=== PATIENT | female | born 1960 ===

== ENCOUNTER 2017-06-03 22:12 | Observation (INO) | payer SELFPAY ==
[2017-06-03 23:10] LABS: BASO # 0.1 K/uL (0.0-0.2); BASO % 0.7 % (0.0-2.0); EOS # 0.3 K/uL (0.0-0.7); EOS % 3.3 % (0.0-4.0); HEMATOCRIT 38.1 % (34.0-47.0); LYMPH # 3.4 K/uL (1.0-4.3); LYMPH % 39.2 % (20.0-40.0); MEAN CELL VOLUME 82.3 fl (81.0-99.0); MEAN CORPUSCULAR HEMOGLOBIN 27.9 pg (27.0-31.0); MEAN CORPUSCULAR HGB CONC 33.9 g/dL (33.0-37.0); MEAN PLATELET VOLUME 7.7 fl (7.2-11.7); MONO # 0.6 K/uL (0.0-0.8); MONO % 7.1 % (0.0-10.0); NEUT # 4.4 K/uL (1.8-7.0); NEUT % 49.7 % (50.0-75.0); NRBC % 0.2 % (0.0-0.0); RED CELL DISTRIBUTION WIDTH 15.4 % (11.5-14.5); WHITE BLOOD COUNT 8.8 K/uL (4.8-10.8)
--- NOTE | 2017-06-03 23:52 | ED PDOC ---
HPI: Chest Pain Time Seen by Provider: 06/03/17 22:23 Chief Complaint (Nursing): Chest Pain Chief Complaint (Provider): chest pain History Per: Patient History/Exam Limitations: no limitations Onset/Duration Of Symptoms: Hrs (since 5pm) Current Symptoms Are (Timing): Still Present Quality: Pressure, "Pain" Associated Symptoms: Dyspnea. denies: Nausea, Diaphoresis, Syncope Additional Complaint(s): Chest pain started while shopping, radiates up from LEFT arm into chest, increased with deep breathing. No relief with rest. Pt with htn and compliant with medications. Also c/o LEFT ear pain for 3 days PMD [facility] Past Medical History Reviewed: Historical Data, Nursing Documentation, Vital Signs Vital Signs: Last Vital Signs Temp 97.5 F L 06/04/17 12:00 Pulse 82 06/04/17 12:00 Resp 18 06/04/17 12:00 BP 105/64 06/04/17 12:00 Pulse Ox 96 06/04/17 12:00 - Medical History PMH: Bronchitis, HTN - Surgical History Surgical History: Tonsillectomy - Family History Family History: States: Hypertension - Social History Current smoker - smoking cessation education provided: No Alcohol: None - Immunization History Hx Tetanus Toxoid Vaccination: No Hx Influenza Vaccination: No Hx Pneumococcal Vaccination: No - Home Medications Home Medications: Ambulatory Orders Medication Instructions Recorded Amlodipine Besylate [Norvasc] 5 mg PO DAILY 01/25/16 Pantoprazole [Protonix EC Tab] 20 mg PO DAILY #1 ect 06/04/17 - Allergies Allergies/Adverse Reactions: Allergies Allergy/AdvReac Type Severity Reaction Status Date / Time No Known Allergies Allergy Verified 01/30/16 04:09 Review of Systems ROS Statement: Except As Marked, All Systems Reviewed And Found Negative (and as per HPI) Constitutional: Negative for: Fever, Chills, Weakness, Malaise ENT: Positive for: Ear Pain Cardiovascular: Positive for: Chest Pain, Light Headedness. Negative for: Edema Musculoskeletal: Positive for: Leg Pain (LEFT leg varicose veins) Neurological: Negative for: Weakness, Numbness Physical Exam - Reviewed Nursing Documentation Reviewed: Yes Vital Signs Reviewed: Yes - Physical Exam Appears: Positive for: Well, No Acute Distress Head Exam: Positive for: ATRAUMATIC, NORMOCEPHALIC Skin: Positive for: Warm, Dry Eye Exam: Positive for: EOMI, PERRL ENT: Negative for: Pharyngeal Erythema, Tonsillar Exudate Neck: Positive for: Painless ROM, Supple Cardiovascular/Chest: Positive for: Regular Rate, Rhythm, Chest Non Tender. Negative for: Murmur Respiratory: Positive for: Normal Breath Sounds. Negative for: Wheezing Gastrointestinal/Abdominal: Positive for: Soft. Negative for: Tenderness Back: Positive for: Normal Inspection. Negative for: Vertebral Tenderness Extremity: Positive for: Normal ROM. Negative for: Deformity Lymphatic: Negative for: Adenopathy Neurologic/Psych: Positive for: Alert. Negative for: Motor/Sensory Deficits - Laboratory Results Result Diagrams: 06/03/17 23:03 06/04/17 00:21 - ECG ECG: Positive for: Interpreted By Me ECG Rhythm: Positive for: Normal QRS, Normal ST Segment, Sinus Rhythm O2 Sat by Pulse Oximetry: 98 Pulse Ox Interpretation: Normal Disposition - Clinical Impression Clinical Impression: Chest pain - Disposition Disposition: Transfer of Care Disposition Time: 00:00 Condition: FAIR Patient Signed Over To: Amaury Verma Handoff Comments: Pending ER workup and final ER disposition
[2017-06-04] MEDS ORDERED: Nitroglycerin 2% Ointment Foilpak UD TOP STA (00:24)
--- NOTE | 2017-06-04 00:26 | ED PDOC ---
- Laboratory Results Result Diagrams: 06/03/17 23:03 06/04/17 00:21 - ECG O2 Sat by Pulse Oximetry: 98 (RA) Pulse Ox Interpretation: Normal Medical Decision Making Medical Decision Making: Time: 00:23 --Patient is signed out to me by Dr. Nga Morris pending labs and reevaluation. Time: 1:01 --Labs and chest x-ray show no clinically significant abnormalities. --Case was discussed with Dr. Hickman, who agreed with decision to place patient under observation status for chest Scribe Attestation: Documented by Gray Obrien, acting as a scribe for Amaury Verma MD Provider Scribe Attestation: All medical record entries made by the Scribe were at my direction and personally dictated by me. I have reviewed the chart and agree that the record accurately reflects my personal performance of the history, physical exam, medical decision making, and the department course for this patient. I have also personally directed, reviewed, and agree with the discharge instructions and disposition. Disposition Discussed With : Linus Hickman Counseled Patient/Family Regarding: Studies Performed, Diagnosis, Need For Followup - Clinical Impression Clinical Impression: Chest pain - POA Present On Arrival: None - Disposition Disposition: Hospitalized as Observation Patient Disposition Time: 01:01 Condition: FAIR
[2017-06-04 00:30] LABS: ALB/GLOB RATIO 1.1 (1.0-2.1); ALKALINE PHOSPHATASE 129 U/L (38-126); ALT/SGPT 28 U/L (9-52); AST/SGOT 30 U/L (14-36); BILIRUBIN,TOTAL 0.2 mg/dl (0.2-1.3); BLOOD UREA NITROGEN 15 mg/dl (7-17); CALCIUM 9.1 mg/dL (8.4-10.2); CARBON DIOXIDE 24 mmol/L (22-30); CHLORIDE 105 mmol/L (98-107); GFR AFRICAN-AMERICAN > 60; GLUCOSE,RANDOM 98 mg/dL (65-105); MAGNESIUM 2.1 MG/DL (1.6-2.3); PHOSPHOROUS 3.7 mg/dl (2.5-4.5); POTASSIUM 3.9 MMOL/L (3.6-5.0); SODIUM 140 mmol/l (132-148); TOTAL PROTEIN 8.1 G/DL (6.3-8.2)
[2017-06-04] MEDS ORDERED: Nitroglycerin 2% Ointment Foilpak UD TOP ONE (00:34)
--- NOTE | 2017-06-04 01:52 | CP.PCM.HP ---
History of Present Illness - History of Present Illness History of Present Illness: 56 y/o female with a PMHx of essential HTN and GERD presented to [facility] ED tonight with a complaint of left arm pain radiating to her LUSB. Pt reports she was shopping this morning when the pain started. Pain started at her LUE at her finger tips and moved up the around the LUSB of her chest. Pain is pressure like in quality, 7/10, constant, exacerbated with deep inspiration, and alleviated with Tylenol. Pt also reports left ear pain in association with pain. Denies any exertional chest pain or history of exertional chest pain. No other complaints. Denies left neck/jaw pain, nausea/vomiting, diaphoresis, palpitations, numbness/tingling. ROS: remaining 12 systems reviewed, foudn to be negative PMD: CFH PMHx: HTN, prediabetes, gastritis Meds: Losartan 100mg QD, Amlodipine 5mg QD, pantoprazole 20mg QD ALL: NKDA PsurgHx: denies PhospHx: denies SocialHx: denies ETOH/Tobacco/drug abuse FamilyHx: denies [place], CAD, Stroke, cancer ED COURSE: Vitals on presentation: 97.9, HR 77, RR 18, BP 143/77, POX 98% RA PE: wnl Labs: CBC: wnl CMP: wnl BNP: wnl Trop I: wnl Coags: wnl Imaging: EKG: NSR, 78bpm, normal axis, no acute ST elevations/depressions (as by me) Admitted to telemetry for further monitoring Present on Admission - Present on Admission Any Indicators Present on Admission: No Past Patient History - Infectious Disease Hx of Infectious Diseases: None - Past Social History Smoking Status: Never Smoked - CARDIAC Hx Hypertension: Yes - PULMONARY Hx Bronchitis: Yes - PSYCHIATRIC Hx Substance Use: No - SURGICAL HISTORY Hx Tonsillectomy: Yes - ANESTHESIA Hx Anesthesia: No Meds Allergies/Adverse Reactions: Allergies Allergy/AdvReac Type Severity Reaction Status Date / Time No Known Allergies Allergy Verified 01/30/16 04:09 Physical Exam - Constitutional Appears: Non-toxic, No Acute Distress - Head Exam Head Exam: ATRAUMATIC - Eye Exam Eye Exam: EOMI. absent: Conjunctival injection, Scleral icterus Pupil Exam: PERRL - ENT Exam ENT Exam: Mucous Membranes Moist - Neck Exam Neck exam: Positive for: Full Rom. Negative for: Tenderness - Respiratory Exam Respiratory Exam: Chest Wall Tenderness (reproducible chest pain on palpation at LUSB), Clear to Auscultation Bilateral, NORMAL BREATHING PATTERN. absent: Rales, Rhonchi, Wheezes - Cardiovascular Exam Cardiovascular Exam: REGULAR RHYTHM, RRR, +S1, +S2. absent: Tachycardia, Gallop , JVD, Rubs, Systolic Murmur - GI/Abdominal Exam GI & Abdominal Exam: Normal Bowel Sounds, Soft. absent: Distended, Firm, Pulsatile Mass, Rebound, Rigid, Tenderness - Extremities Exam Extremities exam: Positive for: normal inspection, pedal pulses present. Negative for: calf tenderness, pedal edema, tenderness - Neurological Exam Neurological exam: Alert, CN II-XII Intact, Oriented x3 - Skin Skin Exam: Dry, Intact, Normal Color, Warm Results - Vital Signs Recent Vital Signs: Last Vital Signs Temp 98.2 F 06/04/17 01:33 Pulse 72 06/04/17 01:33 Resp 16 06/04/17 01:33 BP 110/67 06/04/17 01:33 Pulse Ox 97 06/04/17 01:33 - Labs Result Diagrams: 06/03/17 23:03 06/04/17 00:21 Labs: Laboratory Results - last 24 hr 06/03/17 06/03/17 06/03/17 22:54 23:03 23:03 WBC 8.8 RBC 4.63 Hgb 12.9 Hct 38.1 MCV 82.3 D MCH 27.9 MCHC 33.9 RDW 15.4 H Plt Count 220 MPV 7.7 Neut % (Auto) 49.7 L Lymph % (Auto) 39.2 [place] % (Auto) 7.1 Eos % (Auto) 3.3 Baso % (Auto) 0.7 Neut # 4.4 Lymph # 3.4 [place] # 0.6 Eos # 0.3 Baso # 0.1 PT 10.4 INR 0.9 APTT 31.0 D-Dimer, Quantitative 213 Sodium Potassium Chloride Carbon Dioxide Anion Gap BUN Creatinine Est GFR ( Amer) Est GFR (Non-Af Amer) Random Glucose Calcium Phosphorus Magnesium Total Bilirubin AST ALT Alkaline Phosphatase Troponin I NT-Pro-B Natriuret Pep Total Protein Albumin Globulin Albumin/Globulin Ratio Blood Type O POSITIVE Antibody Screen Negative BBK History Checked No verified bt 06/04/17 00:21 WBC RBC Hgb Hct MCV MCH MCHC RDW Plt Count MPV Neut % (Auto) Lymph % (Auto) [place] % (Auto) Eos % (Auto) Baso % (Auto) Neut # Lymph # [place] # Eos # Baso # PT INR APTT D-Dimer, Quantitative Sodium 140 Potassium 3.9 Chloride 105 Carbon Dioxide 24 Anion Gap 16 BUN 15 Creatinine 0.7 Est GFR ( Amer) > 60 Est GFR (Non-Af Amer) > 60 Random Glucose 98 Calcium 9.1 Phosphorus 3.7 Magnesium 2.1 Total Bilirubin 0.2 AST 30 ALT 28 Alkaline Phosphatase 129 H Troponin I < 0.0120 NT-Pro-B Natriuret Pep 28.6 Total Protein 8.1 Albumin 4.3 Globulin 3.8 Albumin/Globulin Ratio 1.1 Blood Type Antibody Screen BBK History Checked Assessment & Plan (1) Chest pain, rule out acute myocardial infarction Assessment and Plan: first troponin negative EKG in ED unremarkable for ACS Trend Troponins Q8H admit and monitor on tele pain control repeat EKG in AM Status: Acute (2) Essential hypertension Assessment and Plan: controlled c/w home meds Status: Chronic (3) Prediabetes Assessment and Plan: recently diagnosed HbA1c 5.7 dietary control Status: Chronic (4) Prophylactic measure Assessment and Plan: OOB/ambulation SCDs PRN Status: Acute
[2017-06-04 03:19] VITALS: RESP 18
[2017-06-04 08:41] VITALS: TEMP 97.5
[2017-06-04] MEDS ORDERED: Pneumococcal 23-Valent Vaccine IM ONE (09:00)
[2017-06-04] MEDS ORDERED: Pantoprazole 20 mg EC Tab PO SCH (09:00)
[2017-06-04] MEDS ORDERED: Influenza Vaccine 18yr & older 0.5 ML/45 MCG SYR IM ONE (09:00)
--- NOTE | 2017-06-04 09:42 | RAD ---
HISTORY: chest pain COMPARISON: No prior. TECHNIQUE: Chest PA and lateral FINDINGS: LUNGS: No active pulmonary disease. PLEURA: No significant pleural effusion identified. No pneumothorax apparent. CARDIOVASCULAR: Normal. OSSEOUS STRUCTURES: Mild degenerative changes are seen in the spine. VISUALIZED UPPER ABDOMEN: Normal. OTHER FINDINGS: None. IMPRESSION: No active disease.
--- NOTE | 2017-06-04 09:51 | CP.PCM.PN ---
Subjective - Date & Time of Evaluation Date of Evaluation: 06/04/17 Time of Evaluation: 08:00 - Subjective Subjective: 56 y/o female with a PMHx of essential HTN and GERD presented to the ED with symptoms of CP. She currently denies significant chest pain or SOB; She shares of slight headache Pt clarified family history: Mother with pancreatitis at 72 and paternal grandfather with CT; Objective - Vital Signs/Intake and Output Vital Signs (last 24 hours): Temp Pulse Resp BP Pulse Ox 97.5 F L 71 18 107/69 97 06/04/17 08:00 06/04/17 09:36 06/04/17 08:00 06/04/17 09:36 06/04/17 08:00 - Medications Medications: Current Medications Amlodipine Besylate (Norvasc) 5 mg PO DAILY [facility] Last Admin: 06/04/17 09:36 Dose: 5 mg Ketorolac Tromethamine (Toradol) 30 mg IVP Q6 PRN PRN Reason: Pain, moderate (4-7) Losartan Potassium (Cozaar) 100 mg PO DAILY [facility] Last Admin: 06/04/17 09:35 Dose: 100 mg Ondansetron HCl (Zofran Inj) 4 mg IVP Q6 PRN PRN Reason: Nausea/Vomiting Pantoprazole Sodium (Protonix Ec Tab) 20 mg PO DAILY [facility] Last Admin: 06/04/17 09:36 Dose: 20 mg - Labs Labs: 06/03/17 23:03 06/04/17 00:21 PT 10.4 Seconds (9.8-13.1) 06/03/17 23:03 INR 0.9 (0.9-1.2) 06/03/17 23:03 APTT 31.0 Seconds (25.6-37.1) 06/03/17 23:03 Assessment and Plan - Assessment and Plan (Free Text) Plan: 1) Chest Pain first troponin negative EKG in ED unremarkable for ACS Trend Troponins Q8H admit and monitor on tele pain control repeat EKG in AM Status: Acute (2) Essential hypertension Assessment and Plan: controlled c/w home meds Status: Chronic (3) Prediabetes Assessment and Plan: recently diagnosed HbA1c 5.7 dietary control Status: Chronic (4) Prophylactic measure Assessment and Plan: OOB/ambulation SCDs PRN Status: Acute
[2017-06-04 12:23] VITALS: BP 105/64; PULSE 82
--- NOTE | 2017-06-04 13:48 | CP.PCM.DIS ---
Provider - Provider Date of Admission: 06/04/17 01:01 Attending physician: Rhea Bray MD Time Spent in preparation of Discharge (in minutes): 20 Hospital Course - Lab Results Lab Results: Most Recent Lab Values WBC 8.8 K/uL (4.8-10.8) 06/03/17 23:03 RBC 4.63 Mil/uL (3.80-5.20) 06/03/17 23:03 Hgb 12.9 g/dL (12.0-16.0) 06/03/17 23:03 Hct 38.1 % (34.0-47.0) 06/03/17 23:03 MCV 82.3 fl (81.0-99.0) D 06/03/17 23:03 MCH 27.9 pg (27.0-31.0) 06/03/17 23:03 MCHC 33.9 g/dL (33.0-37.0) 06/03/17 23:03 RDW 15.4 % (11.5-14.5) H 06/03/17 23:03 Plt Count 220 K/uL (130-400) 06/03/17 23:03 MPV 7.7 fl (7.2-11.7) 06/03/17 23:03 Neut % (Auto) 49.7 % (50.0-75.0) L 06/03/17 23:03 Lymph % (Auto) 39.2 % (20.0-40.0) 06/03/17 23:03 [place] % (Auto) 7.1 % (0.0-10.0) 06/03/17 23:03 Eos % (Auto) 3.3 % (0.0-4.0) 06/03/17 23:03 Baso % (Auto) 0.7 % (0.0-2.0) 06/03/17 23:03 Neut # 4.4 K/uL (1.8-7.0) 06/03/17 23:03 Lymph # 3.4 K/uL (1.0-4.3) 06/03/17 23:03 [place] # 0.6 K/uL (0.0-0.8) 06/03/17 23:03 Eos # 0.3 K/uL (0.0-0.7) 06/03/17 23:03 Baso # 0.1 K/uL (0.0-0.2) 06/03/17 23:03 PT 10.4 Seconds (9.8-13.1) 06/03/17 23:03 INR 0.9 (0.9-1.2) 06/03/17 23:03 APTT 31.0 Seconds (25.6-37.1) 06/03/17 23:03 D-Dimer, Quantitative 213 ng/mlDDU (0-230) 06/03/17 23:03 Sodium 140 mmol/l (132-148) 06/04/17 00:21 Potassium 3.9 MMOL/L (3.6-5.0) 06/04/17 00:21 Chloride 105 mmol/L (98-107) 06/04/17 00:21 Carbon Dioxide 24 mmol/L (22-30) 06/04/17 00:21 Anion Gap 16 (10-20) 06/04/17 00:21 BUN 15 mg/dl (7-17) 06/04/17 00:21 Creatinine 0.7 mg/dL (0.7-1.2) 06/04/17 00:21 Est GFR ( Amer) > 60 06/04/17 00:21 Est GFR (Non-Af Amer) > 60 06/04/17 00:21 Random Glucose 98 mg/dL (65-105) 06/04/17 00:21 Calcium 9.1 mg/dL (8.4-10.2) 06/04/17 00:21 Phosphorus 3.7 mg/dl (2.5-4.5) 06/04/17 00:21 Magnesium 2.1 MG/DL (1.6-2.3) 06/04/17 00:21 Total Bilirubin 0.2 mg/dl (0.2-1.3) 06/04/17 00:21 AST 30 U/L (14-36) 06/04/17 00:21 ALT 28 U/L (9-52) 06/04/17 00:21 Alkaline Phosphatase 129 U/L (38-126) H 06/04/17 00:21 Troponin I < 0.0120 ng/mL (0.00-0.120) 06/04/17 06:00 NT-Pro-B Natriuret Pep 28.6 pg/ml (0-900) 06/04/17 00:21 Total Protein 8.1 G/DL (6.3-8.2) 06/04/17 00:21 Albumin 4.3 g/dL (3.5-5.0) 06/04/17 00:21 Globulin 3.8 gm/dL (2.2-3.9) 06/04/17 00:21 Albumin/Globulin Ratio 1.1 (1.0-2.1) 06/04/17 00:21 Blood Type O POSITIVE 06/03/17 22:54 Antibody Screen Negative 06/03/17 22:54 BBK History Checked No verified bt 06/03/17 22:54 - Hospital Course Hospital Course: 56 y/o female with a PMHx of essential HTN and GERD presented to the ED with symptoms of CP. r/o for ACS: ECG and Troponins are negative x2 Discontinued Cozer; htn well controlled; Discharge home: follow up outpatient with Dr. Shaikh; Recommend stress test Discharge Exam - Head Exam Head Exam: ATRAUMATIC Discharge Plan - Discharge Medications Prescriptions: Pantoprazole [Protonix EC Tab] 20 mg PO DAILY #1 ect - Follow Up Plan Condition: FAIR Disposition: HOME/ ROUTINE Instructions: Chest Pain (DC)
[2017-06-04 16:02] VITALS: O2SAT 98
--- NOTE | 2017-06-05 10:47 | CARD ---
APPROVED REPORT EKG Measurement Heart [id number] MD [id number] <Conclusion> Normal sinus rhythm Normal ECG
== END 2017-06-04 12:30 | disposition home or self-care (01) ==
LOC: H.ER 22:12 → INTOOBSV 06-04 01:01 → H.ERHOLD 06-04 01:01 → H.TEL 06-04 02:52
PROVIDERS: ADMIT Family Medicine Geriatric Medicine; ATTEND Family Medicine Geriatric Medicine
DX: R07.89 Other chest pain (principal); Z23 Encounter for immunization; K21.9 Gastro-esophageal reflux disease without esophagitis; I10 Essential (primary) hypertension; R73.03 Prediabetes; Z79.899 Other long term (current) drug therapy; J40 Bronchitis, not specified as acute or chronic; K29.70 Gastritis, unspecified, without bleeding; M79.602 Pain in left arm
CPT/HCPCS: 71020; 80053; 81025; 83735; 83880; 84100; 84484; 85025; 85378; 85610; 85730; 86850; 86900; 90471; 90472; 90732; 93005; 99282; G0378; Q2035

== ENCOUNTER 2017-08-21 12:47 | Emergency (ER) | payer SELFPAY ==
[2017-08-21 12:57] VITALS: O2SAT 99
[2017-08-21 13:10] VITALS: RESP 18
--- NOTE | 2017-08-21 13:10 | ED PDOC ---
HPI: CCC, URI, Sore Throat Time Seen by Provider: 08/21/17 12:58 Chief Complaint (Nursing): Chest Pain Chief Complaint (Provider): Productive Cough History Per: Patient History/Exam Limitations: no limitations Onset/Duration Of Symptoms: Days (x 8 days) Associated Symptoms: Fever, Sore Throat, Other (Body Ache) Additional Complaint(s): Patient is a 56 y/o female with past medical history of hypertension, who presents to the ED complaining of productive cough with green sputum and associated subjective fever x 8 days. Patient also complains of body ache and sore throat. Past Medical History Reviewed: Historical Data, Nursing Documentation, Vital Signs Vital Signs: Last Vital Signs Temp 98.0 F 08/21/17 12:54 Pulse 92 H 08/21/17 12:54 Resp 18 08/21/17 13:08 BP 140/97 H 08/21/17 12:54 Pulse Ox 99 08/21/17 13:15 - Medical History PMH: Bronchitis, HTN Denies: Chronic Kidney Disease - Surgical History Surgical History: Tonsillectomy - Family History Family History: States: Hypertension - Social History Current smoker - smoking cessation education provided: No Ex-Smoker (has not smoked in the last 12 months): No Alcohol: None Drugs: Denies - Immunization History Hx Tetanus Toxoid Vaccination: No Hx Influenza Vaccination: No Hx Pneumococcal Vaccination: No - Home Medications Home Medications: Ambulatory Orders Medication Instructions Recorded Amlodipine Besylate [Norvasc] 5 mg PO DAILY 01/25/16 Pantoprazole [Protonix EC Tab] 20 mg PO DAILY #1 ect 06/04/17 Albuterol HFA [Ventolin HFA 90 2 puff IH Q4H #1 puff 08/21/17 mcg/actuation (8 g)] Azithromycin [Zithromax] 250 mg PO DAILY #6 tab 08/21/17 - Allergies Allergies/Adverse Reactions: Allergies Allergy/AdvReac Type Severity Reaction Status Date / Time No Known Allergies Allergy Verified 01/30/16 04:09 Review of Systems ROS Statement: Except As Marked, All Systems Reviewed And Found Negative Constitutional: Positive for: Fever (subjective), Other (Body ache) ENT: Positive for: Throat Pain (Sore throat) Respiratory: Positive for: Cough (Productive, green sputum) Physical Exam - Reviewed Nursing Documentation Reviewed: Yes Vital Signs Reviewed: Yes - Physical Exam Appears: Positive for: No Acute Distress Head Exam: Positive for: NORMOCEPHALIC ENT: Negative for: Tonsillar Exudate Neck: Positive for: Supple Cardiovascular/Chest: Positive for: Regular Rate, Rhythm Respiratory: Positive for: Rhonchi (scattered). Negative for: Wheezing Gastrointestinal/Abdominal: Positive for: Soft. Negative for: Tenderness Extremity: Positive for: Normal ROM. Negative for: Swelling Neurologic/Psych: Positive for: Alert, Oriented (x3) - ECG O2 Sat by Pulse Oximetry: 99 (RA) Pulse Ox Interpretation: Normal Medical Decision Making Medical Decision Makin:00 Initial Impression: Bronchitis, rule out Influenza Initial Plan: --Chest X-Ray Two Views (PA/LAT) --Influenza A B Scribe Attestation: Documented by Ivonne Lenz, acting as a scribe for Phill Lopez MD Provider Scribe Attestation: All medical record entries made by the Scribe were at my direction and personally dictated by me. I have reviewed the chart and agree that the record accurately reflects my personal performance of the history, physical exam, medical decision making, and the department course for this patient. I have also personally directed, reviewed, and agree with the discharge instructions and disposition. Disposition - Clinical Impression Clinical Impression: Bronchitis - Patient ED Disposition Is Patient to be Admitted: No Counseled Patient/Family Regarding: Studies Performed, Diagnosis, Need For Followup, Rx Given - Disposition Referrals: [facility] [Outside] Disposition: Routine/Home Disposition Time: 14:40 Condition: FAIR Prescriptions: Albuterol HFA [Ventolin HFA 90 mcg/actuation (8 g)] 2 puff IH Q4H #1 puff Azithromycin [Zithromax] 250 mg PO DAILY #6 tab Instructions: Acute Bronchitis (ED) Forms: [employer] [facility] (German) Print Language: ALBANIAN
--- NOTE | 2017-08-21 14:02 | RAD ---
HISTORY: cough COMPARISON: Chest x-ray performed 08/17/17 TECHNIQUE: Chest PA and lateral FINDINGS: Examination limited by habitus. LUNGS: No focal consolidation. Please note that chest x-ray has limited sensitivity for the detection of pulmonary masses. PLEURA: No significant pleural effusion identified. No definite pneumothorax . CARDIOVASCULAR: Heart size appears within normal limits. OSSEOUS STRUCTURES: Degenerative changes of the spine. VISUALIZED UPPER ABDOMEN: Mild elevation of the right hemidiaphragm. OTHER FINDINGS: None. IMPRESSION: No focal consolidation, significant pleural effusion, or definite pneumothorax identified.
[2017-08-21 14:54] VITALS: BP 130/80; PULSE 78; TEMP 98.2
== END 2017-08-21 14:54 | disposition home or self-care (01) ==
LOC: H.ER 12:47
DX: J40 Bronchitis, not specified as acute or chronic (principal); I10 Essential (primary) hypertension; Z87.891 Personal history of nicotine dependence

== ENCOUNTER 2017-09-19 14:19 | Emergency (ER) | payer SELFPAY ==
[2017-09-19 14:28] VITALS: BP 152/97; PULSE 93; RESP 16; O2SAT 98
[2017-09-19 14:43] VITALS: TEMP 98.4
[2017-09-19] MEDS ORDERED: Albuterol-Ipratrop 3 mg / 0.5 (3 ml) UD INH STA (17:06)
[2017-09-19] MEDS ORDERED: Albuterol-Ipratrop 3 mg / 0.5 (3 ml) UD IH STA (17:06)
--- NOTE | 2017-09-19 17:08 | ED PDOC ---
HPI: General Adult Time Seen by Provider: 09/19/17 16:46 Chief Complaint (Nursing): Chest Pain Chief Complaint (Provider): Cough History Per: Patient History/Exam Limitations: no limitations Onset/Duration Of Symptoms: Days (3) Additional Complaint(s): Cough, congestion, runny nose, body aches. Dyspnea with wheezes. Has body aches. R calf pain. No chest pain, weakness, headaches, dizziness. Has bronchitis hx and feels the same. no nausea, vomit, diarrhea. No back pain. Past Medical History Reviewed: Nursing Documentation, Vital Signs Vital Signs: Last Vital Signs Temp 98.4 F 09/19/17 14:26 Pulse 93 H 09/19/17 14:26 Resp 16 09/19/17 14:26 BP 152/97 H 09/19/17 14:26 Pulse Ox 98 09/19/17 18:23 - Medical History PMH: Bronchitis, HTN Denies: Chronic Kidney Disease - Surgical History Surgical History: Tonsillectomy - Family History Family History: States: Hypertension - Social History Current smoker - smoking cessation education provided: No Alcohol: None Drugs: Denies - Immunization History Hx Tetanus Toxoid Vaccination: No Hx Influenza Vaccination: No Hx Pneumococcal Vaccination: No - Home Medications Home Medications: Ambulatory Orders Medication Instructions Recorded Amlodipine Besylate [Norvasc] 5 mg PO DAILY 01/25/16 Pantoprazole [Protonix EC Tab] 20 mg PO DAILY #1 ect 06/04/17 Albuterol HFA [Ventolin HFA 90 2 puff IH Q4H #1 puff 08/21/17 mcg/actuation (8 g)] Azithromycin [Zithromax] 250 mg PO DAILY #6 tab 08/21/17 Albuterol Sulfate [Proair Hfa] 0.09 mg IH Q6H PRN #2 inh 09/19/17 Ibuprofen [Motrin] 600 mg PO TID 7 Days tab 09/19/17 predniSONE [predniSONE Tab] 20 mg PO BID 5 Days tab 09/19/17 - Allergies Allergies/Adverse Reactions: Allergies Allergy/AdvReac Type Severity Reaction Status Date / Time No Known Allergies Allergy Verified 09/19/17 14:26 Review of Systems ROS Statement: Except As Marked, All Systems Reviewed And Found Negative ENT: Positive for: Nose Pain, Nose Discharge Respiratory: Positive for: Cough, Shortness of Breath, Wheezing Musculoskeletal: Positive for: Leg Pain Physical Exam - Reviewed Nursing Documentation Reviewed: Yes Vital Signs Reviewed: Yes - Physical Exam Appears: Positive for: Non-toxic, No Acute Distress Head Exam: Positive for: ATRAUMATIC, NORMAL INSPECTION, NORMOCEPHALIC Skin: Positive for: Normal Color, Warm, DRY Eye Exam: Positive for: EOMI, Normal appearance, PERRL ENT: Positive for: Nasal Congestion. Negative for: Pharyngeal Erythema, Tonsillar Exudate Neck: Positive for: Normal, Painless ROM, Supple Cardiovascular/Chest: Positive for: Regular Rate, Rhythm Respiratory: Positive for: Wheezing (b/l). Negative for: Accessory Muscle Use Gastrointestinal/Abdominal: Positive for: Normal Exam, Bowel Sounds, Soft. Negative for: Tenderness Back: Positive for: Normal Inspection. Negative for: L CVA Tenderness, R CVA Tenderness Extremity: Positive for: Normal ROM. Negative for: Tenderness, Pedal Edema Neurologic/Psych: Positive for: Alert, Oriented. Negative for: Motor/Sensory Deficits - ECG O2 Sat by Pulse Oximetry: 98 Pulse Ox Interpretation: Normal - Radiology X-Ray: Interpreted by Me, Viewed By Me X-Ray Interpretation: No Acute Disease - Progress ED Course And Treament: 1843: Stable. AAOx3. Bronchitis. Breathing better. Fu with clinic. No wheezes. Tolerated PO. Disposition - Clinical Impression Clinical Impression: Bronchitis - Patient ED Disposition Is Patient to be Admitted: No Counseled Patient/Family Regarding: Studies Performed, Diagnosis, Need For Followup, Rx Given - Disposition Referrals: [facility] [Outside] - 09/20/17 Disposition: Routine/Home Disposition Time: 18:00 Condition: STABLE Additional Instructions: Return if not better in 3 days. Prescriptions: Albuterol Sulfate [Proair Hfa] 0.09 mg IH Q6H PRN #2 inh PRN Reason: Wheezing Ibuprofen [Motrin] 600 mg PO TID 7 Days tab predniSONE [predniSONE Tab] 20 mg PO BID 5 Days tab Forms: [employer] (Portuguese)
[2017-09-19] MEDS ORDERED: Albuterol-Ipratrop 3 mg / 0.5 (3 ml) UD ONE (17:18)
--- NOTE | 2017-09-20 12:44 | RAD ---
HISTORY: dyspnea COMPARISON: Chest x-ray performed 08/21/17 TECHNIQUE: Chest, one view. FINDINGS: Examination limited by habitus. LUNGS: Right hilar prominence. No focal consolidation. Please note that chest x-ray has limited sensitivity for the detection of pulmonary masses. PLEURA: No significant pleural effusion identified. No definite pneumothorax . CARDIOVASCULAR: Heart size appears within normal limits. OSSEOUS STRUCTURES: Degenerative changes of the spine. VISUALIZED UPPER ABDOMEN: Mild elevation of the right hemidiaphragm. OTHER FINDINGS: None. IMPRESSION: Right hilar prominence.
--- NOTE | 2017-09-20 13:11 | US ---
Right lower extremity Doppler ultrasound Indication: Rule out DVT Technique: Duplex ultrasound evaluation of the right lower extremity Comparison: None available Findings: There is normal flow, compressibility, and augmentation of the right common femoral, femoral, and popliteal veins. The right posterior tibial vein appears patent. Impression: No evidence of deep venous thrombosis in the right lower extremity. Preliminary impression was provided by virtual radiologic.
== END 2017-09-19 20:35 | disposition home or self-care (01) ==
LOC: H.ER 14:19
DX: J40 Bronchitis, not specified as acute or chronic (principal); I10 Essential (primary) hypertension

== ENCOUNTER 2018-07-08 22:01 | Emergency (ER) | payer SELFPAY ==
[2018-07-08 22:27] VITALS: O2SAT 98
[2018-07-08] MEDS ORDERED: Sodium Chloride 0.9% 1,000 ML IV STA (23:12)
[2018-07-08 23:29] LABS: BASO # 0.1 K/uL (0.0-0.2); BASO % 0.8 % (0.0-2.0); EOS # 0.2 K/uL (0.0-0.7); EOS % 2.4 % (0.0-4.0); HEMOGLOBIN 13.8 g/dL (12.0-16.0); LYMPH # 3.4 K/uL (1.0-4.3); LYMPH % 33.7 % (20.0-40.0); MEAN CELL VOLUME 84.5 fl (81.0-99.0); MEAN CORPUSCULAR HEMOGLOBIN 27.7 pg (27.0-31.0); MEAN CORPUSCULAR HGB CONC 32.8 g/dL (33.0-37.0); MEAN PLATELET VOLUME 8.4 fl (7.2-11.7); MONO # 0.6 K/uL (0.0-0.8); MONO % 6.4 % (0.0-10.0); NEUT # 5.7 K/uL (1.8-7.0); NEUT % 56.7 % (50.0-75.0); NRBC % 0.4 % (0.0-0.0); RBC 4.98 Mil/uL (3.80-5.20); RED CELL DISTRIBUTION WIDTH 15.6 % (11.5-14.5)
--- NOTE | 2018-07-08 23:29 | ED PDOC ---
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) Exam Limitations: no limitations - History of Present Illness Timing/Duration: other (x4 days, worse since 1599 today) Allergies/Adverse Reactions: Allergies No Known Allergies Allergy (Verified 09/19/17 14:26) Home Medications: Ambulatory Orders Amlodipine Besylate [Norvasc] 5 mg PO DAILY 01/25/16 Pantoprazole [Protonix EC Tab] 20 mg PO DAILY #1 ect 06/04/17 Albuterol HFA [Ventolin HFA 90 mcg/actuation (8 g)] 2 puff IH Q4H #1 puff 08/21/17 Azithromycin [Zithromax] 250 mg PO DAILY #6 tab 08/21/17 Albuterol Sulfate [Proair Hfa] 0.09 mg IH Q6H PRN #2 inh 09/19/17 Ibuprofen [Motrin] 600 mg PO TID 7 Days tab 09/19/17 predniSONE [predniSONE Tab] 20 mg PO BID 5 Days tab 09/19/17 Additional Complaint(s): 57 year old female presents to the ED for evaluation of left hand tingling and pain for four days associated with a left sided headache and pain to the left jaw since 1600 today. Patient reports the pain in her jaw makes her feel as if she needs to clamp down her jaw, and that she also has had numbness to the left leg and arm for a couple days. She states she waited until tonight to come in because she thought the pain would just go away on its own, but it did not. Othe rwise, denies taking pain medication prior to arrival, vision changes, weakness to extremities, sick contacts, recent injury, lifestyle changes, and fever. Of note, patient reports being compliant with all prescribed medications and takes them as instructed. PMD: [facility] Past Medical History Reviewed: Historical Data, Nursing Documentation, Vital Signs Vital Signs: Last Vital Signs Temp 97.7 F 07/08/18 22:22 Pulse 90 07/08/18 22:22 Resp 16 07/08/18 22:22 BP 171/91 H 07/08/18 22:22 Pulse Ox 98 07/08/18 22:22 - Medical History PMH: Bronchitis, GERD, HTN Denies: Chronic Kidney Disease - Surgical History Surgical History: Tonsillectomy - Family History Family History: States: Hypertension - Immunization History Hx Tetanus Toxoid Vaccination: No Hx Influenza Vaccination: No Hx Pneumococcal Vaccination: No - Home Medications Home Medications: Ambulatory Orders Medication Instructions Recorded Amlodipine Besylate [Norvasc] 5 mg PO DAILY 01/25/16 Pantoprazole [Protonix EC Tab] 20 mg PO DAILY #1 ect 06/04/17 Albuterol HFA [Ventolin HFA 90 2 puff IH Q4H #1 puff 08/21/17 mcg/actuation (8 g)] Azithromycin [Zithromax] 250 mg PO DAILY #6 tab 08/21/17 Albuterol Sulfate [Proair Hfa] 0.09 mg IH Q6H PRN #2 inh 09/19/17 Ibuprofen [Motrin] 600 mg PO TID 7 Days tab 09/19/17 predniSONE [predniSONE Tab] 20 mg PO BID 5 Days tab 09/19/17 - Allergies Allergies/Adverse Reactions: Allergies Allergy/AdvReac Type Severity Reaction Status Date / Time No Known Allergies Allergy Verified 09/19/17 14:26 Review of Systems ROS Statement: Except As Marked, All Systems Reviewed And Found Negative Constitutional: Negative for: Fever Eyes: Negative for: Vision Change ENT: Positive for: Other (left sided jaw pain) Musculoskeletal: Positive for: Hand Pain (left) Neurological: Positive for: Numbness (in left arm and leg), Headache (left sided), Other (tingling to left hand). Negative for: Weakness (in extremities) Physical Exam - Reviewed Nursing Documentation Reviewed: Yes Vital Signs Reviewed: Yes - Physical Exam Appears: Positive for: No Acute Distress Head Exam: Positive for: ATRAUMATIC, NORMAL INSPECTION, NORMOCEPHALIC (grossly symmetric) Skin: Positive for: Normal Color, Warm, Dry Eye Exam: Positive for: Normal appearance, EOMI, PERRL Neck: Positive for: Normal (no tenderness to palpation of c-spine), Painless ROM, Supple Cardiovascular/Chest: Positive for: Regular Rate, Rhythm Respiratory: Positive for: Normal Breath Sounds. Negative for: Respiratory Distress Gastrointestinal/Abdominal: Positive for: Normal Exam, Soft. Negative for: Tenderness Extremity: Positive for: Normal ROM (all extremities), Other (symmetric strength intact to bilateral upper and lower extremities). Negative for: Swelling (to bilateral lower extremities) Neurologic/Psych: Positive for: Alert, dice table person II-XII (grossly intact bilaterally), Oriented (x3), Cerebellar Tests (proprioception intact). Negative for: Motor/Sensory Deficits, Aphasia, Facial Droop - Laboratory Results Result Diagrams: 07/08/18 23:25 07/08/18 23:25 - ECG ECG: Positive for: Interpreted By Me, Viewed By Me ECG Rhythm: Positive for: Sinus Rhythm. Negative for: Sinus Tachycardia, ST/T Changes O2 Sat by Pulse Oximetry: 98 (RA) Pulse Ox Interpretation: Normal Medical Decision Making Medical Decision Making: Time: 2309 Initial Impression: workup for acute headache and left sided facial pain, r/o intra cranial process, r/o left sided cervical dysplasia causing left sided neck pain and arm numbness, workup for electrolyte disorder causing numbness Initial Plan: --CT C-spine --CT Head w/o contrast --EKG --BMP --CBC with differential --PTT / PT --CXR --IV fluids --Tylenol 650 mg PO --Urinalysis Scribe Attestation: Documented by Ana Kemp, acting as a scribe for Mary Narvaez MD. Provider Scribe Attestation: All medical record entries made by the Scribe were at my direction and personally dictated by me. I have reviewed the chart and agree that the record accurately reflects my personal performance of the history, physical exam, medical decision making, and the department course for this patient. I have also personally directed, reviewed, and agree with the discharge instructions and disposition. 1140: This provider was endoscopy technician Mr. Goldstein requested that I evaluate the pt in the CT suite. YONY Yanez accompanied me to the CT suit. Pt was seen sitting up on the stretcher, tearful, occusing Mr. Goldstein of pushing her head against the CT table. Pt was sitting up, moving all extremities. Pt allowed both RN Job and myself to evaluate her head and no injury was visible or palpable. Pt given Toradol for the new head pain. 12:[address] results and lab results. Pt to be signed out to Dr. Verma. Disposition - Disposition Disposition: Transfer of Care Disposition Time: 00:00 (Signed out to Dr. Verma) Condition: IMPROVED Forms: [facility] (Kazakh)
[2018-07-08 23:37] LABS: BLOOD UREA NITROGEN 15 mg/dl (7-17); CALCIUM 9.1 mg/dL (8.4-10.2); GFR NON-AFRICAN AMERICAN > 60
[2018-07-08 23:52] LABS: INR 0.8
[2018-07-08 23:54] LABS: SQUAMOUS EPITHIAL < 1 /hpf (0-5); URINE BILIRUBIN NEGATIVE (NEGATIVE); URINE BLOOD NEGATIVE (NEGATIVE); URINE CLARITY SLIGHTY-CLOUDY (Clear); URINE COLOR YELLOW (YELLOW); URINE GLUCOSE (UA) NEG (Normal); URINE LEUKOCYTE ESTERASE NEG Leu/uL (Negative); URINE PROTEIN NEGATIVE (NEGATIVE); URINE UROBILINOGEN 0.2-1.0 mg/dL (0.2-1.0)
[2018-07-08 23:55] LABS: PARTIAL THROMBOPLASTIN TIME 28.2 Seconds (25.6-37.1)
--- NOTE | 2018-07-09 00:07 | ED PDOC ---
- Laboratory Results Result Diagrams: 07/08/18 23:25 07/08/18 23:25 - ECG O2 Sat by Pulse Oximetry: 98 (RA) Medical Decision Making Medical Decision Makin Patient care endorsed from Dr. Narvaez to this provider pending CTs. 0039 CT Head Impression: Negative study 38 CT C-spine Impression: Unremarkable CT examination of the cervical spine 0122 Patient reports improvement of symptoms and made aware of all findings in the presence of Nurse Gume. Patient is stable to discharge with diagnosis of headache. Scribe Attestation: Documented by Ana Kemp, acting as a scribe for Amaury Verma MD. Provider Scribe Attestation: All medical record entries made by the Scribe were at my direction and personally dictated by me. I have reviewed the chart and agree that the record accurately reflects my personal performance of the history, physical exam, medical decision making, and the department course for this patient. I have also personally directed, reviewed, and agree with the discharge instructions and disposition. Disposition Counseled Patient/Family Regarding: Studies Performed, Diagnosis - Clinical Impression Clinical Impression: Headache - POA Present On Arrival: None - Disposition Disposition: Routine/Home Disposition Time: 01:22 Condition: IMPROVED Prescriptions: Acetaminophen/Butalbital/Caf [Fioricet] 1 - 2 tab PO Q6 PRN #20 tab PRN Reason: Headache Instructions: Headache, Adult Forms: [facility] (Hungarian) Print Language: EAST TIMORESE
[2018-07-09 00:57] VITALS: PULSE 70; RESP 18
[2018-07-09 01:43] VITALS: BP 122/74; TEMP 98.9
[2018-07-09 06:42] LABS: PROTHROMBIN TIME 9.5 Seconds (9.8-13.1)
--- NOTE | 2018-07-09 08:50 | CT ---
Date of service: 07/08/2018 PROCEDURE: CT Cervical Spine without contrast HISTORY: left sided neck pain and l hand numbness COMPARISON: None available. TECHNIQUE: Axial computed tomography images were obtained of the cervical spine without the use of intravenous contrast. Coronal and sagittal reformatted images were created and reviewed. Radiation dose: Total exam DLP = 371.91 mGy-cm. This CT exam was performed using one or more of the following dose reduction techniques: Automated exposure control, adjustment of the mA and/or kV according to patient size, and/or use of iterative reconstruction technique. FINDINGS: VERTEBRAE: No fracture. Normal alignment. No destructive bony lesion. DISCS/SPINAL CANAL/NEURAL FORAMINA: No significant central canal or neural foraminal stenosis. Discs heights are grossly preserved. PARASPINAL SOFT TISSUES: Unremarkable. OTHER FINDINGS: None. IMPRESSION: Unremarkable CT of the cervical spine. Follow-up CT or MRI are available if symptoms persist or worsen or as otherwise may be clinically required. Concordant preliminary report from [facility], 07/09/2018.
--- NOTE | 2018-07-09 08:54 | CT ---
Date of service: 07/08/2018 PROCEDURE: CT HEAD WITHOUT CONTRAST. HISTORY: headache with L facial pain/numbness COMPARISON: None available. TECHNIQUE: Axial computed tomography images were obtained through the head/brain without intravenous contrast. Radiation dose: Total exam DLP = 667.52 mGy-cm. This CT exam was performed using one or more of the following dose reduction techniques: Automated exposure control, adjustment of the mA and/or kV according to patient size, and/or use of iterative reconstruction technique. FINDINGS: HEMORRHAGE: No intracranial hemorrhage. BRAIN: Normal norman-white matter differentiation and density are appreciated throughout the cerebrum and cerebellum with the brainstem appearing unremarkable as well. There is no mass effect. There is no suspicious extra-axial fluid collection and the midline brain anatomy appears diffusely unremarkable. VENTRICLES: Unremarkable. No hydrocephalus. CALVARIUM: Unremarkable. PARANASAL SINUSES: Unremarkable as visualized. No significant inflammatory changes. MASTOID AIR CELLS: Unremarkable as visualized. No inflammatory changes. OTHER FINDINGS: None. IMPRESSION: Unremarkable noncontrast CT of the Head. Concordant preliminary report from [facility], 07/09/2018.
--- NOTE | 2018-07-09 10:45 | CARD ---
APPROVED REPORT Date of service: 07/08/2018 EKG Measurement Heart [id number] <Conclusion> Normal sinus rhythm Normal ECG
== END 2018-07-09 01:40 | disposition home or self-care (01) ==
LOC: H.ER 22:01
DX: R51 Headache (principal); I10 Essential (primary) hypertension; K21.9 Gastro-esophageal reflux disease without esophagitis
CPT/HCPCS: 70450; 71045; 72125; 80048; 81003; 85025; 85610; 85730; 93005; 96360; 96374; 99284; J1885; J7030